=== PATIENT | female | born 1945 | race African-American/Black ===

== ENCOUNTER 2018-03-13 15:05 | Outpatient (CLI) | payer MEDICARE ==
--- NOTE | 2018-03-13 15:45 | Mammography Report ---
Screening mammogram: Routine views demonstrates an intermediate density fibroglandular pattern in a generally symmetric distribution. There are focal asymmetries identified in the upper outer left breast as well as in the superior left breast. The breast pattern is otherwise remarkable. CAD used. Impression: Bilateral asymmetries. Recommendation: This patient prior exam is being requested for comparison and a final recommendation will be made at that time. BI-RADS CATEGORY: 0 = Needs additional imaging evaluation ACR BI-RADS MAMMOGRAPHIC CODES: 0 = Needs additional imaging evaluation; 1 = Negative; 2 = Benign; 3 = Probably benign; 4 = Suspicious; 5 = Malignant; 6 = Known biopsy-proven malignancy COMMENT: 1. Dense breast tissue, i.e., adenosis, fibrocystic changes, etc., may obscure an underlying neoplasm. 2. Approximately 10% of cancers are not detected with mammography. 3. A negative mammography report should not delay biopsy if a clinically suspicious mass is present.
== END 2018-03-13 15:06 | disposition home or self-care (01) ==
LOC: MAMMO 15:05
DX: Z12.31 Encounter for screening mammogram for malignant neoplasm of breast (principal); I10 Essential (primary) hypertension; Z87.891 Personal history of nicotine dependence
CPT/HCPCS: 77067